=== PATIENT | male | born 1980 | race African-American/Black ===

== ENCOUNTER 2018-10-01 08:22 | Observation (INO) | payer OTHER ==
[~2018-10-01 08:22] MED LIST: Bacitracin IV* 50,000 UNITS INJ ONE; Buffered Lidocaine 1% SYRIN* 1 ML/SYRINGE INTRADERM ONE; Lactated Ringers 1000 ML Bag* 1,000 ML IV SCH; Lidocain 1% EPI 1:100,000 * 30 ML MDV ONE; Lidocaine 2% PF * 5 ML VIAL ONE; Lidocaine 4% TOPICAL* 50 ML TOP.SOLN ONE; Midazolam* 1 MG/ML 2 ML VIAL (2 MG) ONE; Propofol* 10 MG/ML 20 ML BTL ONE; Propofol* 500 MG/50 ML BTL ONE; Rocuronium* 10 MG/ML VIAL ONE; Thrombin 5,000 UNITS* 1 APPLIC KIT - topical use - TOPICAL ONE; ceFAZolin 2 GM PREMIX in ORs 2 GM/50 ML BAG IVPB ONE; fentaNYL* 50 MCG/ML 2 ML VIAL (100 MCG VIAL) ONE
[2018-10-01] MEDS ORDERED: hydrALAZINE IV* 20 MG/ML VIAL ONE (09:42)
[2018-10-01] MEDS ORDERED: Ondansetron INJ* 2 MG/ML VIAL ONE (09:43)
[2018-10-01] MEDS ORDERED: Dexamethasone IV* 4 MG/ML 1 ML (4 MG) ONE (09:43)
[2018-10-01] MEDS ORDERED: Ketorolac INJ* 30 MG/ML 1 ML VIAL ONE (09:43)
[2018-10-01] MEDS ORDERED: Metoclopramide IV* 5 MG/ML 2 ML VIAL ONE (09:43)
[2018-10-01] MEDS ORDERED: Sodium Chloride 0.9%* 10 ML ONE (09:45)
[2018-10-01] MEDS ORDERED: Acetaminophen TAB* 325 MG PO PRN ×2 (10:19→12:01)
[2018-10-01] MEDS ORDERED: oxyCODONE TAB* 5 MG TAB PO PRN (10:19)
[2018-10-01] MEDS ORDERED: Naloxone* 0.4 MG/ML 1 ML VIAL IV PRN (10:19)
[2018-10-01] MEDS ORDERED: DiMENhydriNATE IV* 50 MG/ML VIAL IV PUSH PRN (10:19)
[2018-10-01] MEDS ORDERED: Phenylephrine INJ* 10 MG/ML 1 ML VIAL (10 MG) ONE (10:25)
[2018-10-01] MEDS ORDERED: Rocuronium* 10 MG/ML VIAL ONE (10:43)
[2018-10-01] MEDS ORDERED: Sugammadex * 200 MG/2 ML VIAL IV PUSH ONE (11:30)
[2018-10-01] MEDS ORDERED: HYDROmorphone INJ1* 1 MG/ML SYRINGE ONE ×2 (11:30→12:11)
[2018-10-01] MEDS ORDERED: Ondansetron INJ* 2 MG/ML VIAL IV PRN (12:01)
[2018-10-01] MEDS ORDERED: Magnesium Hydroxide LIQ* 30 ML UDC PO PRN (12:01)
[2018-10-01] MEDS ORDERED: Nicotine Inhaler* 10 MG AMP INH PRN (12:04)
[2018-10-01] MEDS: HYDROmorphone INJ1* 1 MG/ML SYRINGE IV PRN ×3 (12:13→12:47)
[2018-10-01] MEDS ORDERED: Lactated Ringers 1000 ML Bag* 1,000 ML IV SCH (13:00)
[2018-10-01] MEDS: Nicotine PATCH 21 MG/24 HR* PATCH TRANSDERM SCH (17:08)
[2018-10-01] MEDS ORDERED: oxyCODONE TAB* 5 MG TAB ONE (17:08)
[2018-10-01] MEDS ORDERED: Benzocaine/Menthol LOZ* 1 LOZENGE ONE (17:08)
[2018-10-01] MEDS: oxyCODONE TAB* 5 MG TAB PO PRN ×2 (17:10→21:14)
[2018-10-01] MEDS: Benzocaine/Menthol LOZ* 1 LOZENGE PO PRN ×2 (17:11→23:30)
[2018-10-01] MEDS ORDERED: Mouth Piece, Nicotine* 1 EACH CARTRIDGE INH ONE (19:00)
[2018-10-01] MEDS: Nicotine Patch Removal NOTE PATCH OFF SCH (21:18)
[2018-10-02] MEDS: oxyCODONE TAB* 5 MG TAB PO PRN ×2 (01:17→05:25)
[2018-10-02] MEDS: Benzocaine/Menthol LOZ* 1 LOZENGE PO PRN ×3 (07:47→21:45)
--- NOTE | 2018-10-02 08:23 | PN ---
Progress Note - Progress Note Date of Service: 10/02/18 SOAP: Subjective: [S/p anterior cervical discectomy and fusion C4-5, C5-6, POD #1. Complains of neck and RUE shoulder pain this morning. Has been up out of bed only to bathroom Eating soft foods well. Denies headache, nausea.] Objective: [ Vital Signs: Temp Pulse Resp BP Pulse Ox 98.2 F 55 16 149/74 98 10/02/18 03:54 10/02/18 03:54 10/02/18 07:49 10/02/18 03:54 10/02/18 07:49 General: Recumbent in bed. Neuro: Motor and sensory intact Incision: Intact, no swelling, mild tenderness. Drain removed today. ] Assessment: [Slow progress post-op, requires further pain management.] Plan: [1. Encourage up out of bed today. 2. Continue pain management]
[2018-10-02] MEDS: Nicotine PATCH 21 MG/24 HR* PATCH TRANSDERM SCH (09:32)
[2018-10-02] MEDS: Cyclobenzaprine TAB* 10 MG PO PRN ×3 (10:18→21:45)
--- NOTE | 2018-10-02 12:27 | OP ---
DATE OF OPERATION: 10/01/18 - ROOM #334 DATE OF : 76 PRIMARY SURGEON: Sam Miller MD. MEDIA PROMOTER: MANUEL Patterson ANESTHESIA: General PRE-OP DIAGNOSIS: Cervical spondylosis C4-5, C5-6 with radiculopathy. POST-OP DIAGNOSIS: Cervical spondylosis C4-5, C5-6 with radiculopathy. OPERATIVE PROCEDURE: Anterior cervical diskectomy and fusion C4-5, C5-6 with placement of biomechanical device C4-5, C5-6 with anterior instrumentation. DESCRIPTION OF PROCEDURE: After satisfactory general anesthesia was obtained, the patient was placed on the operating table in the supine position with the head supported on the horseshoe headrest with the neck slightly extended. The anterior aspect of the cervical spine was clipped, prepped, and draped in a sterile manner for an anterior cervical exposure and a skin incision outlined over the C5 vertebral body as assisted with a inventory analyst radiograph. This incision was began at the midline, and extended to the right side, distance of 3 cm. The incision was infiltrated with 1% Xylocaine with epinephrine after which it was turned down sharply to the level of the subcutaneous tissues. A superior and inferiorly based subcutaneous flap was then fashioned and the platysmal muscle divided along the direction of its fibers. Utilizing a combination of sharp and blunt dissection, a plane was developed between the sternocleidomastoid and strap muscles and carried down to the anterior aspect of the spine. An additional x-ray showed localization of the C4-5 level. The initial step in the procedure was removal of the anterior two-thirds of disk material from the C4-5 level. This also include removal of a significant anterior osteophyte. This was done with Midas Zac drill, angle curettes, and pituitary rongeurs. After removing the anterior two-third of disk material, [place] distractor pins were placed in the C4 and C5 vertebral bodies and gentle disk distraction applied. At this point in procedure, the operating microscope was brought into the field and the remainder of the procedure done under microscopic visualization. Projecting back posterior to this level was a spur primarily coming off of the superior aspect of C5. This was decompressed utilizing the Midas Zac drill as well as [place] rongeurs. This was carried back until normal dura was encountered. At the conclusion of the decompression, the nerve hook would go out readily with both C5 nerve roots. The interspaces was then prepared for receipt of a 7-mm PEEK graft which was filled with bony matrix and slightly countersunk. Attention was then directed to the C5-6 level where in a similar manner, the anterior two-thirds of disk material was removed. An anterior osteophyte was also removed at this level. The pathology at this level was predominantly that of a spur coming off of the superior aspect of C6. This was decompressed with the Midas Zac drill and [place]ison rongeurs and again carried back until normal dura was encountered. At the conclusion of the decompression, the nerve hook ran out readily with both C6 nerve roots. The interspace was prepared for receipt of a 10-mm PEEK graft filled with bony matrix and slightly countersunk. A [employer] ZEVO plate was then selected to span from C4 through C6. This was secured into position with 13-mm screws, two each in the C4, C5 and C6 vertebral bodies. A post-construct x-ray showed good screw and graft placement. The wound was then thoroughly irrigated after which a drain was placed in the prevertebral space and tunneled out towards the right side. The subcutaneous tissue was then reapproximated with 3-0 Vicryl and the skin closed with Steri-Strips. The estimated blood loss was less then 50 cc. The final sponge, padding, and needle counts were correct. The patient was taken to the recovery room, extubated, and in stable condition. [id number]/[facility] #: [id number] ROSSI
[2018-10-02] MEDS: Nicotine Patch Removal NOTE PATCH OFF SCH (20:50)
[2018-10-03] MEDS: oxyCODONE TAB* 5 MG TAB PO PRN (03:40)
[2018-10-03] MEDS: Benzocaine/Menthol LOZ* 1 LOZENGE PO PRN ×2 (07:59→14:39)
[2018-10-03] MEDS: Nicotine PATCH 21 MG/24 HR* PATCH TRANSDERM SCH (08:02)
--- NOTE | 2018-10-03 08:06 | PN ---
Progress Note - Progress Note Date of Service: 10/03/18 SOAP: Subjective: [S/p ACD F C4-5, C5-6, POD #2. Reports neck stiffness and soreness this morning. Reports bilateral shoulders soreness, using ice. Pain well controlled with PO medications. Ambulating well independently. Eating soft foods and drinking well. Denies nausea and headache. ] Objective: [ Vital Signs: Temp Pulse Resp BP Pulse Ox 98.5 F 57 16 133/70 99 10/03/18 07:31 10/03/18 07:31 10/03/18 07:31 10/03/18 07:31 10/03/18 07:31 General: Alert and sitting up at bedside Neuro: Motor and sensory intact Incision: Intact, steristrips in place. No swelling, erythema. Dressing replaced. ] Assessment: [Satisfactory post-op course.] Plan: [1. Discharge today 2. Discharge instructions discussed with the patient]
[2018-10-03] MEDS: Cyclobenzaprine TAB* 10 MG PO PRN ×2 (10:14→15:57)
[2018-10-03 11:53] VITALS: BP 136/67
== END 2018-10-03 16:05 ==
LOC: EDBD → OR 08:22 → EDBD 09:15 → SSU 12:01 → OR 16:59 → SSU 19:00 → EEVIPCON 19:00
PROVIDERS: ADMIT Neurological Surgery; ATTEND Neurological Surgery
DX: M47.812 Spondylosis without myelopathy or radiculopathy, cervical region (principal); M47.22 Other spondylosis with radiculopathy, cervical region; Z72.0 Tobacco use
CPT/HCPCS: 0163T; 22857; 72020; 96374; 96375; A9270-GY; C1713; C1776; G0378; J0360; J0690; J1100; J1170; J1885; J2250; J2405; J2704; J2765; J3010